=== PATIENT | female | born 1990 ===

== ENCOUNTER 2025-03-25 14:14 | Outpatient (CLI) | payer OTHER, SELFPAY ==
--- NOTE | ~2025-03-25 | CT_ITS ---
Noncontrast CT scan of the left calf CLINICAL HISTORY: Pain TECHNIQUE: Axial noncontrast imaging of the left calf was performed. Sagittal and coronal reformatted images were constructed. Dose reduction technique was used on this scan by utilizing automated expos ure control and iterative reconstruction technique. The dose-length product (DLP) was 347.48 mGy-cm. Findings: No fracture or dislocation seen. Joint spaces are intact without degenerative or erosive ch vivian. No periosteal reaction or destructive change seen. No joint effusion evident. There is crescentic fluid collection along the fascial plane interposed between the medial gastrocnem ius and soleus muscle heads. No other soft tissue abnormality evident. Subcutaneous soft tissues are unremarkable. IMPRESSION: Crescentic fluid collection along the fascial plane between the medial gastrocnemius and soleus muscl e has. Fluid collection in this region is suggestive of plantaris tendon rupture. Correlate clinicall y. Reviewed, dictated and finalized at [facility]. IMPRESSION: Crescentic fluid collection along the fascial plane between the medial gastrocn emius and soleus muscle has. Fluid collection in this region is suggestive of p lantaris tendon rupture. Correlate clinically.
== END 2025-03-25 14:15 | disposition home or self-care (01) ==
LOC: MICIMG 14:15
PROVIDERS: PCP Registered Nurse; Visit Provider Registered Nurse
DX: M79.662 Pain in left lower leg (principal); S86.812A Strain of other muscle(s) and tendon(s) at lower leg level, left leg, initial encounter; X58.XXXA Exposure to other specified factors, initial encounter
CPT/HCPCS: 73700